=== PATIENT | male | born 1940 | race Caucasian/White ===

== ENCOUNTER 2016-04-30 11:12 | Outpatient (CLI) | payer MEDICARE, OTHER | END 2016-04-30 11:13 | disposition home or self-care (01) | DX: I48.91 Unspecified atrial fibrillation (principal) ==

== ENCOUNTER 2016-06-30 12:36 | Outpatient (CLI) | payer MEDICARE, OTHER | END 2016-06-30 12:37 | disposition home or self-care (01) | DX: I48.91 Unspecified atrial fibrillation (principal) ==

== ENCOUNTER 2016-07-19 10:33 | Outpatient (CLI) | payer MEDICARE, OTHER | END 2016-07-19 10:34 | disposition home or self-care (01) | DX: I48.91 Unspecified atrial fibrillation (principal) ==

== ENCOUNTER 2016-09-09 09:38 | Outpatient (CLI) | payer MEDICARE, OTHER | END 2016-09-09 09:39 | disposition home or self-care (01) | DX: I48.91 Unspecified atrial fibrillation (principal) ==

== ENCOUNTER 2016-09-27 11:15 | Outpatient (CLI) | payer MEDICARE, OTHER | END 2016-09-27 23:59 | disposition home or self-care (01) | LOC: LAB.S 11:15 | PROVIDERS: ATTEND Internal Medicine | DX: I48.91 Unspecified atrial fibrillation (principal) | CPT/HCPCS: 85610 ==

== ENCOUNTER 2016-09-27 15:26 | Outpatient (CLI) | payer MEDICARE, OTHER | END 2016-09-27 15:27 | disposition home or self-care (01) | LOC: LAB.F 15:26 | PROVIDERS: ATTEND Internal Medicine | DX: D35.2 Benign neoplasm of pituitary gland (principal); I48.91 Unspecified atrial fibrillation | CPT/HCPCS: 36415; 84146; 85610 ==

== ENCOUNTER 2016-09-28 14:15 | Outpatient (CLI) | payer MEDICARE, OTHER ==
--- NOTE | 2016-09-28 16:13 | Mammography Report ---
DIGITAL BILATERAL DIAGNOSTIC MAMMOGRAM: 09/28/2016 CLINICAL INDICATION: Right retroareolar pain. TECHNIQUE: Bilateral CC and MLO views. This is the patient's baseline examination. FINDINGS: There is mild asymmetric gynecomastia, right greater than left. No suspicious mass, clust ered microcalcifications, or regions of architectural distortion are identified. IMPRESSION: MILD ASYMMETRIC GYNECOMASTIA. RECOMMENDATION: Continued clinical management. BI-RADS category 2, benign findings. STANDARD QUALIFYING STATEMENTS 1. This examination was reviewed with the aid of Computer-Aided Detection (CAD). 2. A negative or benign imaging report should not delay biopsy if clinically suspicious findings are present. Consider surgical consultation if warranted. More than 5% of cancers are not identified by i maging. 3. Dense breasts may obscure an underlying neoplasm. JOB #: [id number] EXT JOB #:[id number]
== END 2016-09-28 14:16 | disposition home or self-care (01) ==
LOC: DI 14:15
PROVIDERS: ATTEND Internal Medicine
DX: N62 Hypertrophy of breast (principal)
CPT/HCPCS: 77066

== ENCOUNTER 2016-11-22 13:15 | Outpatient (CLI) | payer MEDICARE, OTHER | END 2016-11-22 13:16 | disposition home or self-care (01) | LOC: LAB.F 13:15 | PROVIDERS: ATTEND Internal Medicine | DX: I48.91 Unspecified atrial fibrillation (principal) | CPT/HCPCS: 85610 ==

== ENCOUNTER 2016-12-16 13:42 | Outpatient (CLI) | payer MEDICARE, OTHER | END 2016-12-16 13:43 | disposition home or self-care (01) | LOC: LAB.F 13:42 | PROVIDERS: ATTEND Internal Medicine | DX: I48.91 Unspecified atrial fibrillation (principal) | CPT/HCPCS: 85610 ==

== ENCOUNTER 2017-01-27 10:36 | Outpatient (CLI) | payer MEDICARE, OTHER | END 2017-01-27 10:37 | disposition home or self-care (01) | LOC: LAB.F 10:36 | PROVIDERS: ATTEND Internal Medicine | DX: I48.91 Unspecified atrial fibrillation (principal) | CPT/HCPCS: 85610 ==

== ENCOUNTER 2017-03-07 11:18 | Outpatient (CLI) | payer MEDICARE, OTHER ==
[2017-03-07 18:42] LABS: BILIRUBIN,URINE NEGATIVE (NEGATIVE); PH,URINE 5.5 PH (5.0-7.5)
[2017-03-07 18:47] LABS: UA CHARGE (STRIP ONLY) YES; UR CULTURE IF IND NOT INDICATED
== END 2017-03-07 11:19 | disposition home or self-care (01) ==
LOC: LAB.F 11:18
PROVIDERS: ATTEND Internal Medicine
DX: I48.91 Unspecified atrial fibrillation (principal); I10 Essential (primary) hypertension; R31.0 Gross hematuria; Z79.01 Long term (current) use of anticoagulants; G20 Parkinson's disease; D35.2 Benign neoplasm of pituitary gland
CPT/HCPCS: 81001; 81003; 87086

== ENCOUNTER 2017-05-16 13:58 | Outpatient (CLI) | payer MEDICARE, OTHER | END 2017-05-16 13:59 | disposition home or self-care (01) | LOC: LAB.F 13:58 | PROVIDERS: ATTEND Internal Medicine | DX: I48.91 Unspecified atrial fibrillation (principal) | CPT/HCPCS: 85610 ==

== ENCOUNTER 2017-05-23 11:37 | Outpatient (CLI) | payer MEDICARE, OTHER | END 2017-05-23 11:38 | disposition home or self-care (01) | LOC: LAB.F 11:37 | PROVIDERS: ATTEND Internal Medicine | DX: I48.91 Unspecified atrial fibrillation (principal) | CPT/HCPCS: 85610 ==

== ENCOUNTER 2017-05-25 07:34 | Outpatient (CLI) | payer MEDICARE, OTHER ==
--- NOTE | 2017-05-25 12:21 | CT Report ---
DATE OF SERVICE: 05/25/2017 CT BRAIN WITHOUT CONTRAST: 05/25/2017 CLINICAL INDICATION: TIA. COMPARISON: 05/16/2015 TECHNIQUE: Axial CT images of the brain were obtained without intravenous contrast. FINDINGS: The ventricles and sulci demonstrate moderate symmetric enlargement, compatible with atrophy. The basilar cisterns are patent. There is no evidence of acute hemorrhage, mass effect, or midline shift. Mucosal thickening is seen in the ethmoid air cells, compatible with chronic sinus disease, stable. IMPRESSION: STABLE ATROPHY AND CHRONIC SINUS DISEASE. NO EVIDENCE OF ACUTE HEMORRHAGE OR MASS EFFECT. In accordance with CT protocol optimization, one or more of the following dose reduction techniques were utilized for this exam: automated exposure control, adjustment of mA and/or KV based on patient size, or use of iterative reconstructive technique. TD: 05/25/2017 13:20
--- NOTE | 2017-05-25 15:44 | Ultrasound Report ---
CAROTID DUPLEX: 05/25/2017 CLINICAL INDICATION: TIA. COMPARISON: 05/16/2015. TECHNIQUE: Real-time sonographic vascular imaging was performed by the silo filler through the carotid arteries utilizing both color-flow and Doppler spectral analysis. Multiple benefits representative static images were saved for review. RIGHT Vessel PSV cm/sec EDV cm/sec ICA/CCA PSV Ratio Degree of stenosis Plaque Estimate% RCCA Prox 63 --- --- --- --- RCCA Dist 65 14 --- --- --- RECA 113 --- --- --- --- RT BULB 59 15 0.90 --- --- PORTER Prox 68 24 1.04 --- --- PORTER Mid 71 29 1.09 --- --- PORTER Dist 116 39 1.78 --- --- RVA 32 --- --- --- --- RVA flow direction: Antegrade LEFT Vessel PSV cm/sec EDV cm/sec ICA/CCA PSV Ratio Degree of stenosis Plaque Estimate% LCCA Prox 82 --- --- --- --- LCCA Dist 76 14 --- --- --- LECA 99 --- --- --- --- LFT BULB 57 12 0.75 --- --- LICA Prox 79 28 1.03 --- --- LICA Mid 80 26 1.05 --- --- LICA Dist 78 31 1.02 --- --- LVA 33 --- --- --- --- LVA flow direction: Antegrade Velocity criteria are extrapolated from diameter data as defined by the Society of Radiologists in Ultrasound Consensus Conference Radiology 2003; 229; 340-346. Degree of Stenosis ICA PSV cm/sec ICA/CCA RSV Ratio ICA EDV cm/sec Plaque Estimate % % Normal < 125 < 40 < 2.0 None <50 < 125 <40 < 2.0 < 50 50-69 125-130 40-100 2.0-4.0 >/= 50 >/=70 but less than> 230 > 100 > 4.0 >/= 50 near occlusion Near occlusion High, low or Variable Variable Visible undetectable Total occlusion Undetectable Not applicable Not applicable No detectable lumen FINDINGS: RIGHT: There is mild plaquing in the right carotid bifurcation, without evidence of a focal hemodynamically significant carotid stenosis. LEFT: There is mild plaquing in the left carotid bifurcation, without evidence of a focal hemodynamically significant stenosis. The vertebral arteries demonstrate antegrade flow bilaterally. Incidental note is made of a mildly hypoechoic nodule in the right lobe of the thyroid. Thyroid ultrasound is recommended for further evaluation. IMPRESSION: MILD PLAQUING BILATERALLY, WITHOUT EVIDENCE OF A FOCAL HEMODYNAMICALLY SIGNIFICANT CAROTID STENOSIS. INCIDENTAL RIGHT THYROID NODULE. FORMAL THYROID ULTRASOUND IS RECOMMENDED FOR FURTHER EVALUATION. TD: 05/25/2017 13:25 FERNANDO
== END 2017-05-25 07:35 | disposition home or self-care (01) ==
LOC: DI 07:34
PROVIDERS: ATTEND Internal Medicine
DX: G45.9 Transient cerebral ischemic attack, unspecified (principal); G31.9 Degenerative disease of nervous system, unspecified; J32.9 Chronic sinusitis, unspecified; I27.20 Pulmonary hypertension, unspecified
CPT/HCPCS: 70450; 93005; 93306; 93880

== ENCOUNTER 2017-06-02 13:20 | Outpatient (CLI) | payer MEDICARE, OTHER | END 2017-06-02 13:21 | disposition home or self-care (01) | LOC: LAB.F 13:20 | PROVIDERS: ATTEND Internal Medicine | DX: I48.91 Unspecified atrial fibrillation (principal) | CPT/HCPCS: 85610 ==

== ENCOUNTER 2017-06-13 15:25 | Outpatient (CLI) | payer MEDICARE, OTHER ==
--- NOTE | 2017-06-14 13:17 | Ultrasound Report ---
THYROID ULTRASOUND: 06/13/2017 CLINICAL INDICATION: Right thyroid nodule incidentally noted on carotid duplex. TECHNIQUE: Real-time scanning was performed with investment representative static images obtained. FINDINGS: The right lobe measures 4.6 x 1.7 x 1.2 cm, and the left lobe measures 3.8 x 1.9 x 1.3 cm. The isthmus measures 2 mm. In the central portion of the right lobe of the thyroid, there is a 1.6 x 1.1 x 0.9 cm isoechoic mostly circumscribed nodule, with a few microcalcifications and increased vascularity. As such, it is an intermediate suspicion nodule by HAL criteria, and fine needle aspiration is recommended. No adenopathy is seen. IMPRESSION: INTERMEDIATE SUSPICION NODULE IN THE MID RIGHT LOBE OF THE THYROID BY HAL CRITERIA. CONSIDER FINE NEEDLE ASPIRATION. TD: 06/14/2017 13:16 MTDD
== END 2017-06-13 15:26 | disposition home or self-care (01) ==
LOC: DI 15:25
PROVIDERS: ATTEND Internal Medicine
DX: E04.1 Nontoxic single thyroid nodule (principal)
CPT/HCPCS: 76536

== ENCOUNTER 2017-07-11 09:37 | Outpatient (CLI) | payer MEDICARE, OTHER ==
[2017-07-11 18:16] LABS: BUN - BLOOD UREA NITROGEN 15 mg/dL (6-20); CALCIUM 9.5 mg/dL (8.5-10.3); CARBON DIOXIDE - CO2 30 mmol/L (21-32); CHLORIDE 101 mmol/L (101-111); CREATININE 0.6 mg/dL (0.6-1.2); GFR - MDRD 130 (>89); GLUCOSE 113 mg/dL (70-100); SODIUM 138 mmol/L (135-145)
== END 2017-07-11 09:38 | disposition home or self-care (01) ==
LOC: LAB.F 09:37
PROVIDERS: ATTEND Internal Medicine
DX: I48.91 Unspecified atrial fibrillation (principal); I10 Essential (primary) hypertension; G20 Parkinson's disease; D35.2 Benign neoplasm of pituitary gland; E04.1 Nontoxic single thyroid nodule; G45.9 Transient cerebral ischemic attack, unspecified
CPT/HCPCS: 36415; 80048; 84443; 85610

== ENCOUNTER 2017-08-03 09:03 | Outpatient (CLI) | payer MEDICARE, OTHER ==
[2017-08-03] MEDS ORDERED: BUFFERED LIDOCAINE 10 ML SYRINGE IU ONE (10:24)
--- NOTE | 2017-08-03 10:59 | Ultrasound Report ---
ULTRASOUND-GUIDED FINE NEEDLE ASPIRATION RIGHT THYROID NODULE: 08/03/2017 CLINICAL INDICATION: Intermediate suspicion nodule right lobe of the thyroid. FINDINGS: Following obtaining informed consent, the patient's right neck was prepped and draped in the usual sterile fashion. The skin and soft tissues were anesthetized with lidocaine. Under ultrasound guidance, four 22-gauge fine needle aspirations were performed. Needle washings were submitted to pathology in [facility]. The patient tolerated the procedure well. No immediate complications. IMPRESSION: FINE NEEDLE ASPIRATION RIGHT THYROID NODULE. PATHOLOGY REPORT PENDING. TD: 08/03/2017 10:59
[2017-08-03 11:16] VITALS: BP 141/70
== END 2017-08-03 09:04 | disposition home or self-care (01) ==
LOC: DI 09:03
PROVIDERS: ATTEND Internal Medicine
DX: E04.1 Nontoxic single thyroid nodule (principal)
CPT/HCPCS: 10022; 76942; 88173; 88305

== ENCOUNTER 2017-08-11 12:27 | Outpatient (CLI) | payer MEDICARE, OTHER | END 2017-08-11 12:28 | disposition home or self-care (01) | LOC: LAB.F 12:27 | PROVIDERS: ATTEND Internal Medicine | DX: I48.91 Unspecified atrial fibrillation (principal) | CPT/HCPCS: 85610 ==

== ENCOUNTER 2017-10-06 12:13 | Outpatient (CLI) | payer MEDICARE, OTHER | END 2017-10-06 12:14 | disposition home or self-care (01) | LOC: LAB.F 12:13 | PROVIDERS: ATTEND Internal Medicine | DX: I48.91 Unspecified atrial fibrillation (principal) | CPT/HCPCS: 85610 ==

== ENCOUNTER 2017-12-08 12:45 | Outpatient (CLI) | payer MEDICARE, OTHER | END 2017-12-08 12:46 | disposition home or self-care (01) | LOC: LAB.F 12:45 | PROVIDERS: ATTEND Internal Medicine | DX: I48.91 Unspecified atrial fibrillation (principal) | CPT/HCPCS: 85610 ==

== ENCOUNTER 2018-02-09 13:53 | Outpatient (CLI) | payer MEDICARE, OTHER | END 2018-02-09 13:54 | disposition home or self-care (01) | LOC: LAB.F 13:53 | PROVIDERS: ATTEND Internal Medicine | DX: I48.91 Unspecified atrial fibrillation (principal) | CPT/HCPCS: 85610 ==

== ENCOUNTER 2018-03-09 15:08 | Outpatient (CLI) | payer MEDICARE, OTHER ==
[2018-03-09 18:51] LABS: INR 1.9 (0.8-1.2); PT - PROTHROMBIN TIME 21.4 secs (9.9-12.6)
== END 2018-03-09 15:09 | disposition home or self-care (01) ==
LOC: LAB.F 15:08
PROVIDERS: ATTEND Internal Medicine
DX: I48.91 Unspecified atrial fibrillation (principal)
CPT/HCPCS: 36415; 85610

== ENCOUNTER 2018-05-04 12:52 | Outpatient (CLI) | payer MEDICARE, OTHER ==
[2018-05-04 17:25] LABS: BASOPHILS # (AUTO) 0.1 10^3/uL (0.0-0.1); BASOPHILS % (AUTO) 0.7 %; EOSINOPHILS # (AUTO) 0.1 10^3/uL (0.0-0.7); EOSINOPHILS % (AUTO) 1.3 %; HGB - HEMOGLOBIN 13.8 g/dL (14.0-18.0); LYMPHOCYTES % (AUTO) 12.7 %; MEAN CORPUSCULAR HEMOGLOBIN 30.4 pg (27.0-31.0); MEAN CORPUSCULAR VOLUME 92.2 fL (80.0-94.0); MEAN PLATELET VOLUME 8.3 fL (7.4-11.4); MONOCYTES # (AUTO) 0.5 10^3/uL (0.0-1.0); MONOCYTES % (AUTO) 6.6 %; NEUTROPHILS # (AUTO) 6.3 10^3/uL (1.5-6.6); NEUTROPHILS % (AUTO) 78.7 %; PLT - PLATELET COUNT 211 10^3/uL (130-450); RED BLOOD COUNT 4.54 10^6/uL (4.70-6.10); RED CELL DISTRIBUTION WIDTH 12.9 % (12.0-15.0)
[2018-05-04 17:32] LABS: ALBUMIN 3.8 g/dL (3.2-5.5); ALBUMIN/GLOBULIN RATIO 1.7 (1.0-2.2); ALKALINE PHOSPHATASE 53 IU/L (42-121); ALT ALANINE AMINOTRANSFERASE < 10 IU/L (10-60); AST ASPARTATE AMINOTRANSFERASE 15 IU/L (10-42); BILIRUBIN,TOTAL 0.5 mg/dL (0.2-1.0); BUN - BLOOD UREA NITROGEN 21 mg/dL (6-20); CALCIUM 8.6 mg/dL (8.5-10.3); CARBON DIOXIDE - CO2 29 mmol/L (21-32); CHLORIDE 104 mmol/L (101-111); CREATININE 0.6 mg/dL (0.6-1.2); GFR - MDRD 130 (>89); GLUCOSE 93 mg/dL (70-100); SODIUM 138 mmol/L (135-145)
== END 2018-05-04 12:53 | disposition home or self-care (01) ==
LOC: LAB.F 12:52
PROVIDERS: ATTEND Internal Medicine
DX: Z00.00 Encounter for general adult medical examination without abnormal findings (principal); I48.91 Unspecified atrial fibrillation; C44.91 Basal cell carcinoma of skin, unspecified; I10 Essential (primary) hypertension; I50.32 Chronic diastolic (congestive) heart failure; I69.998 Other sequelae following unspecified cerebrovascular disease; L30.9 Dermatitis, unspecified; N52.9 Male erectile dysfunction, unspecified; R31.0 Gross hematuria; R31.9 Hematuria, unspecified; Z79.01 Long term (current) use of anticoagulants; E29.1 Testicular hypofunction; M25.519 Pain in unspecified shoulder; G20 Parkinson's disease; Z86.73 Personal history of transient ischemic attack (TIA), and cerebral infarction without residual deficits; D35.2 Benign neoplasm of pituitary gland; I73.00 Raynaud's syndrome without gangrene; E04.1 Nontoxic single thyroid nodule; G45.9 Transient cerebral ischemic attack, unspecified
CPT/HCPCS: 36415; 80053; 84443; 85025; 85610

== ENCOUNTER 2018-07-20 12:45 | Outpatient (CLI) | payer MEDICARE, OTHER | END 2018-07-20 12:46 | disposition home or self-care (01) | LOC: LAB.F 12:45 | PROVIDERS: ATTEND Internal Medicine | DX: I48.91 Unspecified atrial fibrillation (principal) | CPT/HCPCS: 85610 ==

== ENCOUNTER 2018-08-17 13:16 | Outpatient (CLI) | payer MEDICARE, OTHER | END 2018-08-17 13:17 | disposition home or self-care (01) | LOC: LAB.F 13:16 | PROVIDERS: ATTEND Internal Medicine | DX: I48.91 Unspecified atrial fibrillation (principal) | CPT/HCPCS: 85610 ==

== ENCOUNTER 2018-09-20 09:36 | Emergency (ER) | payer MEDICARE, OTHER ==
[2018-09-20] MEDS ORDERED: SODIUM CHLORIDE 0.9% 1,000 ML IV STA (09:59)
[2018-09-20 10:18] LABS: BASOPHILS % (AUTO) 0.3 %; EOSINOPHILS % (AUTO) 0.2 %; HGB - HEMOGLOBIN 14.4 g/dL (14.0-18.0); LYMPHOCYTES # (AUTO) 0.8 10^3/uL (1.5-3.5); LYMPHOCYTES % (AUTO) 6.4 %; MEAN CORPUSCULAR HEMOGLOBIN 30.1 pg (27.0-31.0); MEAN CORPUSCULAR HGB CONC 33.4 g/dL (32.0-36.0); MEAN CORPUSCULAR VOLUME 90.3 fL (80.0-94.0); MEAN PLATELET VOLUME 7.9 fL (7.4-11.4); MONOCYTES # (AUTO) 0.6 10^3/uL (0.0-1.0); MONOCYTES % (AUTO) 5.2 %; NEUTROPHILS # (AUTO) 10.9 10^3/uL (1.5-6.6); NEUTROPHILS % (AUTO) 87.9 %; PLT - PLATELET COUNT 236 10^3/uL (130-450); RED BLOOD COUNT 4.77 10^6/uL (4.70-6.10); WHITE BLOOD COUNT 12.4 x10^3/uL (4.8-10.8)
[2018-09-20 10:25] LABS: INR 1.1 (0.8-1.2); PT - PROTHROMBIN TIME 12.7 secs (9.9-12.6)
--- NOTE | 2018-09-20 10:33 | XRAY Report ---
Reason: Chest Pain Procedure Date: 09/20/2018 Accession Number: [id number] / [id number] Procedure: XR - Chest 1 View X-Ray CPT Code: 71737 FULL RESULT: EXAM: CHEST RADIOGRAPHY EXAM DATE: 09/20/2018 10:18 AM. CLINICAL HISTORY: Chest Pain. COMPARISON: 05/24/2011 3:03 PM. TECHNIQUE: 1 view. FINDINGS: Lungs/Pleura: Linear scarring left greater than right bibasilar scarring. No consolidation. No vascular congestion. No pneumothorax. No pleural effusions. Mediastinum: Heart size upper normal. Aorta is mildly tortuous. Other: Healed right-sided rib fractures. IMPRESSION: 1. Linear left greater than right bibasilar parenchymal scarring. 2. No acute disease. RADIA
[2018-09-20 10:41] LABS: ALBUMIN 4.3 g/dL (3.2-5.5); ALBUMIN/GLOBULIN RATIO 1.7 (1.0-2.2); ALKALINE PHOSPHATASE 63 IU/L (42-121); ALT ALANINE AMINOTRANSFERASE < 10 IU/L (10-60); AST ASPARTATE AMINOTRANSFERASE 21 IU/L (10-42); BILIRUBIN,TOTAL 1.4 mg/dL (0.2-1.0); BUN - BLOOD UREA NITROGEN 31 mg/dL (6-20); CALCIUM 9.6 mg/dL (8.5-10.3); CARBON DIOXIDE - CO2 28 mmol/L (21-32); CHLORIDE 100 mmol/L (101-111); GFR - MDRD 72 (>89); GLUCOSE 146 mg/dL (70-100); LIPASE 25 U/L (22-51); SODIUM 139 mmol/L (135-145); TOTAL PROTEIN 6.9 g/dL (6.7-8.2)
[2018-09-20 11:36] LABS: BILIRUBIN,URINE NEGATIVE (NEGATIVE); GLUCOSE, URINE (UA) NEGATIVE (NEGATIVE); KETONES,URINE (UA) 15 mg/dL (NEGATIVE); LEUKOCYTE ESTERASE, URINE NEGATIVE (NEGATIVE); NITRITE,URINE NEGATIVE (NEGATIVE); OCCULT BLOOD,URINE NEGATIVE (NEGATIVE); PH,URINE 5.5 PH (5.0-7.5); PROTEIN,URINE TRACE mg/dL (NEGATIVE); UROBILINOGEN,URINE 0.2 (NORMAL) E.U./dL (NORMAL)
[2018-09-20 11:41] LABS: CLARITY,URINE CLEAR (CLEAR)
[2018-09-20 13:34] VITALS: BP 110/76
--- NOTE | 2018-09-20 13:37 | ED Physician Documentation ---
History of Present Illness - Stated complaint Stated Complaint: DIZZY SWEATING, PX - Chief complaint Chief Complaint: General - History obtained from History obtained from: Patient, Family - History of Present Illness Timing: Today - Additonal information Additional information: This is a 78-year-old man with a history of Parkinson's who lives alone. He presents with his son today complaints that he woke up in a sweat that was just drenching around 6 AM and that is very unusual for him. He felt a little disoriented and he hurt all over his body. As he laid there thinking about it he began to panic thinking that he might be having a stroke or heart attack so he called his son who brought him in for evaluation. He does complain of a headache and he has some chronic blurry vision but nothing new. Patient is concerned mainly because he misunderstood some instructions by his primary care provider and discontinued taking his warfarin about 2 weeks ago. The plan had been for him to follow-up with neurology before deciding whether or not to discontinue the warfarin and he has an appointment scheduled at the end of September. He is on the warfarin because of multiple TIAs with syncopal episodes in the past. He did not pass out this morning. He had no nausea or vomiting. He has not been running a fever but he did not check his temperature when this happened. He does complain of irregular urine stream and has a history of an enlarged prostate but no dysuria and no blood in the urine. He normally walks with a walker. Review of Systems Constitutional: reports: Sweats. denies: Fever Eyes: reports: Decreased vision (Chronic) Nose: denies: Rhinorrhea / runny nose, Congestion Throat: denies: Sore throat Cardiac: denies: Chest pain / pressure, Palpitations Respiratory: denies: Dyspnea, Cough GI: denies: Abdominal Pain, Nausea, Vomiting, Diarrhea : reports: Hesitancy. denies: Dysuria, Hematuria Neurologic: reports: Headache. denies: Generalized weakness, Focal weakness, Numbness, Head injury Psychiatric: reports: Anxiety. denies: Depressed PD PAST MEDICAL HISTORY - Past Medical History Cardiovascular: Hypertension, Atrial fibrillation Neuro: TIA, Parkinson's, Fainting : Benign prostate hypertrophy Musculoskeletal: Chronic back pain, Other - Past Surgical History Past Surgical History: Yes General: Other Ortho: Spine surgery HEENT: Cataracts, Tonsil/Adenoidectomy - Present Medications Home Medications: Ambulatory Orders Medication Instructions Recorded Confirmed Carbidopa/Levodopa 2 tab PO Q2HR 05/30/14 05/30/14 [Carbidopa-Levodopa 25-100 Tab] RX: Cabergoline [Dostinex] 0.5 mg PO DAILY 05/30/14 05/30/14 RX: Lisinopril 20 mg PO DAILY 05/30/14 05/30/14 RX: Warfarin [Coumadin] 5 mg PO DAILY 05/30/14 05/30/14 - Allergies Allergies/Adverse Reactions: Allergies Allergy/AdvReac Type Severity Reaction Status Date / Time No Known Drug Allergies Allergy Verified 09/20/18 09:51 - Social History Does the pt smoke?: No Smoking Status: Never smoker Does the pt drink ETOH?: No Does the pt have substance abuse?: No - Immunizations Immunizations are current?: Yes PD ED PE NORMAL - Vitals Vital signs reviewed: Yes (Patient was initially hypotensive) - General General: Alert and oriented X 3, No acute distress, Well developed/nourished - HEENT HEENT: Atraumatic, PERRL, Other (Dry mucous membranes) - Neck Neck: No JVD, No bruit - Cardiac Cardiac: RRR - Respiratory Respiratory: No respiratory distress, Clear bilaterally - Abdomen Abdomen: Normal bowel sounds, Soft - Derm Derm: Normal color, No rash - Neuro Neuro: Alert and oriented X 3, net finisher 2-12 intact, No motor deficit, No sensory deficit, Other (Speech is mildly delayed. He had no noticeable tremor.) - Psych Psych: Normal mood, Other (Flat affect) Results - Vitals Vitals: Vital Signs - 24 hr 09/20/18 09/20/18 09/20/18 09:46 10:01 11:11 Temperature 36.1 C L Heart Rate 74 71 79 Respiratory 18 18 18 Rate Blood Pressure 89/52 L 111/57 L 125/98 H O2 Saturation 98 99 99 09/20/18 13:33 Temperature Heart Rate 86 Respiratory 14 Rate Blood Pressure 110/76 O2 Saturation 98 Oxygen O2 Source Room air - EKG (time done) 0950 Rate: Rate (enter#) Rhythm: NSR Intervals: Normal [place] QRS: Normal Ischemia: Normal ST segments Other comments: Other comments (Q waves in leads III and aVF) Compare to prior EKG: Old EKG unavailable - Labs Labs: Laboratory Tests 09/20/18 09/20/18 09/20/18 09:58 09:58 09:58 WBC 12.4 H RBC 4.77 Hgb 14.4 Hct 43.1 MCV 90.3 MCH 30.1 MCHC 33.4 RDW 13.0 Plt Count 236 MPV 7.9 Neut # (Auto) 10.9 H Lymph # (Auto) 0.8 L [place] # (Auto) 0.6 Eos # (Auto) 0.0 Baso # (Auto) 0.0 Absolute Nucleated RBC 0.00 Nucleated RBC % 0.0 PT 12.7 H INR 1.1 Sodium 139 Potassium 3.9 Chloride 100 L Carbon Dioxide 28 Anion Gap 11.0 BUN 31 H Creatinine 1.0 Estimated GFR (MDRD) 72 L Glucose 146 H Calcium 9.6 Total Bilirubin 1.4 H AST 21 ALT < 10 L Alkaline Phosphatase 63 Troponin I Total Protein 6.9 Albumin 4.3 Globulin 2.6 Albumin/Globulin Ratio 1.7 Lipase 25 Urine Color Urine Clarity Urine pH Ur Specific [place] Urine Protein Urine Glucose (UA) Urine Ketones Urine Occult Blood Urine Nitrite Urine Bilirubin Urine Urobilinogen Ur Leukocyte Esterase Ur Microscopic Review Urine Culture Comments 09/20/18 09/20/18 09:58 11:06 WBC RBC Hgb Hct MCV MCH MCHC RDW Plt Count MPV Neut # (Auto) Lymph # (Auto) [place] # (Auto) Eos # (Auto) Baso # (Auto) Absolute Nucleated RBC Nucleated RBC % PT INR Sodium Potassium Chloride Carbon Dioxide Anion Gap BUN Creatinine Estimated GFR (MDRD) Glucose Calcium Total Bilirubin AST ALT Alkaline Phosphatase Troponin I < 0.04 Total Protein Albumin Globulin Albumin/Globulin Ratio Lipase Urine Color DARK YELLOW Urine Clarity CLEAR Urine pH 5.5 Ur Specific [place] 1.025 Urine Protein TRACE Urine Glucose (UA) NEGATIVE Urine Ketones 15 H Urine Occult Blood NEGATIVE Urine Nitrite NEGATIVE Urine Bilirubin NEGATIVE Urine Urobilinogen 0.2 (NORMAL) Ur Leukocyte Esterase NEGATIVE Ur Microscopic Review NOT INDICATED Urine Culture Comments NOT INDICATED PD MEDICAL DECISION MAKING - ED course Complexity details: reviewed results, re-evaluated patient, d/w patient, d/w family ED course: Patient was initially hypotensive there was no obvious infection based on his work-up. I did give him a liter of fluids and his blood pressure improved and he seemed to feel much better after that. The patient was extremely anxious and wanted to be discharged. He did not feel like he needed to be here any longer. We went over the test results that I had back. At this point I do not know that I would recommend that he would go back on the warfarin so I tried to call his primary care provider who is unfortunately out of the office today but I did discuss with their nurse and let them know that the patient will be calling and probably needs to get back in for a follow-up appointment sooner rather than later to discuss whether or not they reinstitute the warfarin.The family was planning to call this afternoon to schedule follow-up appointment. Departure - Departure Disposition: Home, Self Care Clinical Impression: Fatigue Qualifiers: Fatigue type: unspecified Qualified Code(s): R53.83 - Other fatigue Condition: Good Instructions: ED Weakness UKO Follow-Up: Raven Blum PA [Primary Care Provider] - Comments: You should call Shazia Blum's office this afternoon to arrange for follow-up appointment to discuss whether or not to restart the Coumadin before seeing the neurologist.Return if you have a fever or experience any more specific symptoms including chest pain, shortness of breath, dizziness or loss of consciousness. Discharge Date/Time: 09/20/18 13:49
== END 2018-09-20 13:49 | disposition home or self-care (01) ==
LOC: ED 09:36
DX: R53.83 Other fatigue (principal); I95.9 Hypotension, unspecified; F41.9 Anxiety disorder, unspecified; I44.5 Left posterior fascicular block; I10 Essential (primary) hypertension; N40.1 Benign prostatic hyperplasia with lower urinary tract symptoms; R39.11 Hesitancy of micturition; G20 Parkinson's disease; Z86.73 Personal history of transient ischemic attack (TIA), and cerebral infarction without residual deficits
CPT/HCPCS: 36415; 71045; 80053; 81001; 81003; 83690; 84484; 85025; 85610; 87086; 93005; 96360; 99283; 99284

== ENCOUNTER 2018-12-11 10:57 | Emergency (ER) | payer MEDICARE, OTHER ==
[2018-12-11 11:42] LABS: BILIRUBIN,URINE NEGATIVE (NEGATIVE); GLUCOSE, URINE (UA) NEGATIVE (NEGATIVE); KETONES,URINE (UA) TRACE mg/dL (NEGATIVE); LEUKOCYTE ESTERASE, URINE NEGATIVE (NEGATIVE); NITRITE,URINE NEGATIVE (NEGATIVE); OCCULT BLOOD,URINE NEGATIVE (NEGATIVE); PROTEIN,URINE NEGATIVE (NEGATIVE); UROBILINOGEN,URINE 0.2 (NORMAL) E.U./dL (NORMAL)
[2018-12-11 11:47] LABS: CLARITY,URINE CLEAR (CLEAR)
[2018-12-11 11:49] LABS: BASOPHILS % (AUTO) 0.2 %; EOSINOPHILS # (AUTO) 0.1 10^3/uL (0.0-0.7); HGB - HEMOGLOBIN 14.5 g/dL (14.0-18.0); LYMPHOCYTES # (AUTO) 0.9 10^3/uL (1.5-3.5); LYMPHOCYTES % (AUTO) 9.4 %; MEAN CORPUSCULAR HGB CONC 32.1 g/dL (32.0-36.0); MEAN CORPUSCULAR VOLUME 93.6 fL (80.0-94.0); MEAN PLATELET VOLUME 9.5 fL (7.4-11.4); MONOCYTES # (AUTO) 0.7 10^3/uL (0.0-1.0); MONOCYTES % (AUTO) 6.5 %; NEUTROPHILS # (AUTO) 8.2 10^3/uL (1.5-6.6); NEUTROPHILS % (AUTO) 82.6 %; PLT - PLATELET COUNT 214 10^3/uL (130-450); RED BLOOD COUNT 4.83 10^6/uL (4.70-6.10); RED CELL DISTRIBUTION WIDTH 13.1 % (12.0-15.0); WHITE BLOOD COUNT 9.9 x10^3/uL (4.8-10.8)
[2018-12-11 11:54] LABS: INR 1.1 (0.8-1.2); PT - PROTHROMBIN TIME 12.5 secs (9.9-12.6)
[2018-12-11 12:01] LABS: ALBUMIN/GLOBULIN RATIO 1.3 (1.0-2.2); ALKALINE PHOSPHATASE 70 IU/L (42-121); ALT ALANINE AMINOTRANSFERASE < 10 IU/L (10-60); AST ASPARTATE AMINOTRANSFERASE 18 IU/L (10-42); BILIRUBIN,TOTAL 0.8 mg/dL (0.2-1.0); BUN - BLOOD UREA NITROGEN 17 mg/dL (6-20); CALCIUM 9.6 mg/dL (8.5-10.3); CARBON DIOXIDE - CO2 28 mmol/L (21-32); CHLORIDE 100 mmol/L (101-111); CREATININE 0.6 mg/dL (0.6-1.2); GFR - MDRD 130 (>89); GLUCOSE 102 mg/dL (70-100); LIPASE 23 U/L (22-51); SODIUM 141 mmol/L (135-145)
--- NOTE | 2018-12-11 12:14 | CT Report ---
Reason: headache, confusion Procedure Date: 12/11/2018 Accession Number: [id number] / [id number] Procedure: CT - HEAD WO CPT Code: FULL RESULT: EXAM: CT HEAD EXAM DATE: 12/11/2018 11:53 AM. CLINICAL HISTORY: Headache, confusion. COMPARISON: HEAD W/O 05/25/2017 7:59 AM. TECHNIQUE: Multiaxial CT images were obtained from the foramen magnum to the vertex. Reformats: Sagittal and coronal. IV contrast: None. In accordance with CT protocol optimization, one or more of the following dose reduction techniques were utilized for this exam: automated exposure control, adjustment of mA and/or KV based on patient size, or use of iterative reconstructive technique. FINDINGS: Parenchyma: No intraparenchymal hemorrhage. No evidence of mass, midline shift, or CT findings of acute infarction. Gallegos-white differentiation is distinct. Diffuse chronic microangiopathic white matter changes are evident. Extraaxial Spaces: Normal for age. No subdural or epidural collections identified. Ventricles: The ventricles and cortical sulci are enlarged, consistent with age-related tissue loss. Sinuses and orbits: Partial opacification of the posterior right ethmoid sinuses. Bilateral maxillary and bilateral ethmoid sinus mucosal thickening. Otherwise, the remaining paranasal sinuses, orbits, and mastoids show no significant abnormality. Bones: No evidence of fracture or calvarial defect. Other: Status post bilateral cataract procedures. Extensive calcifications are present in the cavernous carotid and vertebral arteries. IMPRESSION: 1. Sinus mucosal disease. 2. Generalized age-related cortical atrophic changes without evidence of acute intracranial abnormality. RADIA
--- NOTE | 2018-12-11 12:40 | XRAY Report ---
Reason: chest pain Procedure Date: 12/11/2018 Accession Number: [id number] / [id number] Procedure: XR - Chest 1 View X-Ray CPT Code: 99224 FULL RESULT: EXAM: CHEST RADIOGRAPHY EXAM DATE: 12/11/2018 12:02 PM. CLINICAL HISTORY: Chest pain. COMPARISON: CHEST 1 VIEW 09/20/2018 10:06 AM. TECHNIQUE: 1 view. FINDINGS: Lungs/Pleura: No focal opacities evident. No pleural effusion. No pneumothorax. Mediastinum: Within exam limitations, the cardiomediastinal contour is normal. Other: None. IMPRESSION: No focal consolidation. RADIA
--- NOTE | 2018-12-11 12:48 | ED Physician Documentation ---
History of Present Illness - Stated complaint Stated Complaint: CONFUSION - Chief complaint Chief Complaint: Neuro - History obtained from History obtained from: Patient, Family, EMS - History of Present Illness Timing: Today - Additonal information Additional information: 78-year-old male with a history of Parkinson's disease who cares for himself at his own home and takes his carbidopa levodopa every 2 hours awoke this morning feeling some difficulty with confusion. He called his ex- and she was able to come to his aid in his accompanied him here today to the emergency department. She states that he has had issues previously with expressive a aphasia and Parkinson's and he has had a TIA previously. Review of Systems Constitutional: denies: Fever Eyes: denies: Photophobia Ears: denies: Ear pain Nose: denies: Congestion Throat: denies: Sore throat Cardiac: denies: Chest pain / pressure Respiratory: denies: Dyspnea, Cough GI: denies: Abdominal Pain, Nausea, Vomiting : denies: Dysuria, Frequency Skin: denies: Rash Musculoskeletal: denies: Neck pain, Back pain, Extremity pain Neurologic: reports: Difficulty speaking, Altered mental status, Headache. denies: Generalized weakness, Focal weakness, Numbness, Head injury, LOC PD PAST MEDICAL HISTORY - Past Medical History Past Medical History: Yes Cardiovascular: Hypertension, Atrial fibrillation Respiratory: None Neuro: TIA, Parkinson's, Fainting Endocrine/Autoimmune: None GI: None : Benign prostate hypertrophy HEENT: None Psych: None Musculoskeletal: Chronic back pain, Other Derm: None - Past Surgical History Past Surgical History: Yes General: Other Ortho: Spine surgery HEENT: Cataracts, Tonsil/Adenoidectomy - Present Medications Home Medications: Ambulatory Orders Medication Instructions Recorded Confirmed Cabergoline [Dostinex] 0.5 mg PO DAILY 05/30/14 05/30/14 Carbidopa/Levodopa 2 tab PO Q2HR 05/30/14 05/30/14 [Carbidopa-Levodopa 25-100 Tab] Lisinopril 20 mg PO DAILY 05/30/14 05/30/14 Warfarin [Coumadin] 5 mg PO DAILY 05/30/14 05/30/14 - Allergies Allergies/Adverse Reactions: Allergies Allergy/AdvReac Type Severity Reaction Status Date / Time No Known Drug Allergies Allergy Verified 12/11/18 11:10 - Social History Does the pt smoke?: No Smoking Status: Never smoker Does the pt drink ETOH?: No Does the pt have substance abuse?: No - Immunizations Immunizations are current?: Yes PD ED PE NORMAL - Vitals Vital signs reviewed: Yes (hypertensive ) - General General: No acute distress, Well developed/nourished, Other (Speaks short sentence single words) - HEENT HEENT: Atraumatic, PERRL, EOMI, Other (dry mucous membranes ) - Neck Neck: Supple, no meningeal sign, No bony TTP - Cardiac Cardiac: RRR, No murmur - Respiratory Respiratory: No respiratory distress, Clear bilaterally - Abdomen Abdomen: Soft, Non tender - Back Back: No CVA TTP, No spinal TTP - Derm Derm: Normal color, Warm and dry, No rash - Extremities Extremities: No deformity, No edema - Neuro Neuro: sight effects specialist 2-12 intact, No motor deficit, No sensory deficit Eye Opening: Spontaneous Motor: Obeys Commands Verbal: Oriented GCS Score: 15 - Psych Psych: Normal mood, Normal affect Results - Vitals Vitals: Vital Signs - 24 hr 12/11/18 12/11/18 12/11/18 11:06 11:40 12:10 Temperature 36.6 C Heart Rate 72 68 66 Respiratory 16 14 15 Rate Blood Pressure 148/76 H 189/89 H 173/89 H O2 Saturation 97 98 97 12/11/18 12/11/18 12:30 13:00 Temperature Heart Rate 68 66 Respiratory 17 18 Rate Blood Pressure 162/92 H 184/84 H O2 Saturation 96 97 Oxygen O2 Source Room air - EKG (time done) 1118 Rate: Rate (enter#) (69) Rhythm: Other (supraventricular bigeminy) Ischemia: Q waves Compare to prior EKG: Changed from prior EKG (SPT 09-20-18 supraventricular bigeminy has developed. ) Computer interpretation: Agree with computer - Labs Labs: Laboratory Tests 12/11/18 12/11/18 12/11/18 11:23 11:32 11:42 WBC 9.9 RBC 4.83 Hgb 14.5 Hct 45.2 MCV 93.6 MCH 30.0 MCHC 32.1 RDW 13.1 Plt Count 214 MPV 9.5 Neut # (Auto) 8.2 H Lymph # (Auto) 0.9 L [place] # (Auto) 0.7 Eos # (Auto) 0.1 Baso # (Auto) 0.0 Absolute Nucleated RBC 0.00 Nucleated RBC % 0.0 PT INR Sodium Potassium Chloride Carbon Dioxide Anion Gap BUN Creatinine Estimated GFR (MDRD) Glucose POC Whole Bld Glucose 98 Calcium Total Bilirubin AST ALT Alkaline Phosphatase Total Protein Albumin Globulin Albumin/Globulin Ratio Lipase Urine Color YELLOW Urine Clarity CLEAR Urine pH 5.0 Ur Specific [place] >=1.030 H Urine Protein NEGATIVE Urine Glucose (UA) NEGATIVE Urine Ketones TRACE Urine Occult Blood NEGATIVE Urine Nitrite NEGATIVE Urine Bilirubin NEGATIVE Urine Urobilinogen 0.2 (NORMAL) Ur Leukocyte Esterase NEGATIVE Ur Microscopic Review NOT INDICATED Urine Culture Comments NOT INDICATED 12/11/18 12/11/18 11:42 11:42 WBC RBC Hgb Hct MCV MCH MCHC RDW Plt Count MPV Neut # (Auto) Lymph # (Auto) [place] # (Auto) Eos # (Auto) Baso # (Auto) Absolute Nucleated RBC Nucleated RBC % PT 12.5 INR 1.1 Sodium 141 Potassium 3.9 Chloride 100 L Carbon Dioxide 28 Anion Gap 13.0 BUN 17 Creatinine 0.6 Estimated GFR (MDRD) 130 Glucose 102 H POC Whole Bld Glucose Calcium 9.6 Total Bilirubin 0.8 AST 18 ALT < 10 L Alkaline Phosphatase 70 Total Protein 7.0 Albumin 4.0 Globulin 3.0 Albumin/Globulin Ratio 1.3 Lipase 23 Urine Color Urine Clarity Urine pH Ur Specific [place] Urine Protein Urine Glucose (UA) Urine Ketones Urine Occult Blood Urine Nitrite Urine Bilirubin Urine Urobilinogen Ur Leukocyte Esterase Ur Microscopic Review Urine Culture Comments - Rads (name of study) CT head Radiology: Prelim report reviewed (Impression: 1. Sinus mucosal disease. 2 Generalized age-related cortical atrophic changes without evidence of acute intercranial abnormality.), EMP read indepedently, See rad report PD MEDICAL DECISION MAKING - ED course Complexity details: reviewed old records, reviewed results, re-evaluated patient, considered differential, d/w patient, d/w family ED course: 78-year-old male with a history of Parkinson's presents to the emergency department today feeling that he has some confusion or difficulty. Here in the emergency department he is acting normally and his symptoms have resolved. He is found to be mildly dehydrated on interrogation the inferior vena cava and he does not want intervene his fluid. He does take his carbidopa levodopa approximately every 2 hours on a short acting medication and he has previously refused longer acting medication. I have encouraged the patient to reconsider this as I suspect that he may have had an off phenomena this morning prior to taking his medication. Departure - Departure Disposition: 01 Home, Self Care Clinical Impression: Dehydration TIA (transient ischemic attack) Qualifiers: Transient cerebral ischemia type: unspecified Qualified Code(s): G45.9 - Transient cerebral ischemic attack, unspecified Condition: Stable Instructions: ED Dehydration, ED Transient Ischemic Attack Follow-Up: Raven Blum PA [Primary Care Provider] - Comments: Follow up with your neurologist to consider long acting carbadopa/levodopa Discharge Date/Time: 12/11/18 13:16
[2018-12-11 13:16] VITALS: BP 184/84
== END 2018-12-11 13:16 | disposition home or self-care (01) ==
LOC: ED 10:57
DX: G45.9 Transient cerebral ischemic attack, unspecified (principal); E86.0 Dehydration; R00.8 Other abnormalities of heart beat; G20 Parkinson's disease; I10 Essential (primary) hypertension; I48.91 Unspecified atrial fibrillation; Z79.01 Long term (current) use of anticoagulants
CPT/HCPCS: 36415; 70450; 71045; 80053; 81001; 81003; 83690; 85025; 85610; 87086; 93005; 99284

== ENCOUNTER 2019-01-04 09:39 | Outpatient (CLI) | payer MEDICARE, OTHER ==
--- NOTE | 2019-01-04 16:11 | Ultrasound Report ---
Reason: SYNCOPE Procedure Date: 01/04/2019 Accession Number: [id number] / [id number] Procedure: US - Carotid Doppler Complete CPT Code: FULL RESULT: EXAM: BILATERAL CAROTID AND VERTEBRAL ARTERY DUPLEX DOPPLER ULTRASOUND: EXAM DATE: 01/04/2019 11:18 AM CLINICAL HISTORY: Syncope. COMPARISON: CAROTID DOPPLER COMPLETE 05/25/2017 9:19 AM. TECHNIQUE: Grayscale imaging, color Doppler, and duplex spectral Doppler were used to evaluate the carotid and vertebral arteries bilaterally. Static images were obtained. FINDINGS: Small right thyroid nodule again noted, measuring about 1.6 x 1.1 x 1.0 cm, unchanged. No significant plaque is identified in the right or left common or internal carotid arteries. Normal antegrade flow is present in bilateral vertebral arteries. VELOCITIES (cm/sec): Right CCA Mid: PSV 82 cm/sec CCA Dist: PSV 70 cm/sec ICA Prox: PSV 68 cm/sec, EDV 20 cm/sec ICA Mid: PSV 70 cm/sec, EDV 20 cm/sec ICA Dist: PSV 99 cm/sec, EDV 32 cm/sec ECA: PSV 111 cm/sec Vert: PSV 33 cm/sec ICA/CCA: 1.21 Left CCA Mid: PSV 81 cm/sec CCA Dist: PSV 72 cm/sec ICA Prox: PSV 62 cm/sec, EDV 19 cm/sec ICA Mid: PSV 71 cm/sec, EDV 20 cm/sec ICA Dist: PSV 70 cm/sec, EDV 23 cm/sec ECA: PSV 100 cm/sec Vert: PSV 38 cm/sec ICA/CCA: 0.88 ICA diameter stenosis: Right: <50% by velocity and <70% by NASCET criteria. Left: <50% by velocity and <70% by NASCET criteria. IMPRESSION: 1. No significant bilateral carotid artery plaquing. 2. In the right carotid artery there are no elevated carotid artery velocities to suggest hemodynamically significant stenosis. 3. In the left carotid artery there are no elevated carotid artery velocities to suggest hemodynamically significant stenosis. 4. Normal antegrade flow is present in bilateral vertebral arteries. General Recommendations: Stenosis =50% ICA - Follow-up ultrasound 6-12 months Stenosis <50% ICA - High Risk Patient with plaque - Follow-up ultrasound 1-2 years Normal Study but High Risk Patient - Follow-up ultrasound 3-5 years Management recommendations and diagnostic criteria are based on current IAC endorsed standards in Carotid Artery Stenosis: Grayscale and Doppler Ultrasound Diagnosis. Validated velocity measurements with angiographic measurements and velocity criteria are extrapolated from diameter data as defined by the Society of Radiologists in Ultrasound Consensus Conference Radiology 2003; 229;340-346. RADIA
== END 2019-01-04 09:40 | disposition home or self-care (01) ==
LOC: DI 09:39
PROVIDERS: ATTEND Psychiatry & Neurology Neurology
DX: R55 Syncope and collapse (principal); R42 Dizziness and giddiness
CPT/HCPCS: 93880